=== PATIENT | male | born 1985 | race Caucasian/White ===

== ENCOUNTER 2022-04-04 12:50 | Emergency (ER) | payer OTHER ==
[~2022-04-04] VITALS: Ht 188 cm; Wt 113.6 kg
[2022-04-04] MEDS ORDERED: PERTUSS(ACELL),DIPH,TET VAC/PF 0.5 ML SYRINGE IM. ONE (13:00)
[2022-04-04] MEDS ORDERED: LIDOCAINE 1% 10 ML VIAL SQ ONE (13:00)
[2022-04-04] MEDS ORDERED: AMOX500C2 PO (13:37)
[2022-04-04 13:55] VITALS: BP 130/68
== END 2022-04-04 13:56 | disposition home or self-care (01) ==
LOC: EMS 12:52
DX: S01.511A Laceration without foreign body of lip, initial encounter (principal); Y04.8XXA Assault by other bodily force, initial encounter; Y93.89 Activity, other specified; Y92.89 Other specified places as the place of occurrence of the external cause; Y99.0 Civilian activity done for income or pay
CPT/HCPCS: 99283; 90715; 90471; 12013; J3490

== ENCOUNTER 2022-04-12 14:48 | Emergency (ER) | payer OTHER ==
[~2022-04-12] VITALS: Ht 188 cm; Wt 113.6 kg
[~2022-04-12 14:48] MED LIST: AMOX500C2 PO
[2022-04-12 14:49] VITALS: BP 144/78
== END 2022-04-12 18:03 | disposition home or self-care (01) ==
LOC: EMS 18:03
DX: S01.511D Laceration without foreign body of lip, subsequent encounter (principal); Y08.89XD Assault by other specified means, subsequent encounter
CPT/HCPCS: 99281; Z7502